=== PATIENT | male | born 1965 | race Two or more races ===

== ENCOUNTER 2024-01-09 05:40 | Inpatient (IN) | payer MEDICAID, OTHER ==
[~2024-01-09] VITALS: Ht 167.6 cm; Wt 75.2 kg
[2024-01-09] VITALS (19 sets, daily range): BP systolic 94–127; BP diastolic 58–79; PULSE 66–83; RESP 10–22; TEMP 97.4–97.9; O2SAT 90–99
[2024-01-09 07:38] LABS: Alanine Aminotransferase 35 U/L (7-40); Albumin 4.5 g/dL (3.2-4.8); Alkaline Phosphatase 48 U/L (46-116); Anion Gap 5 (5-15); Aspartate Aminotransferase 136 U/L (13-40); BUN/Creatinine Ratio 14.2 (10.0-20.0); Blood Urea Nitrogen 18 mg/dL (9-23); Calcium 9.5 mg/dL (8.7-10.4); Carbon Dioxide 29 mmol/L (20-30); Chloride 105 mmol/L (98-107); Glucose 96 mg/dL (74-106); Lipase 32 U/L (12-53); Magnesium 2.2 mg/dL (1.6-2.6); Potassium 4.2 mmol/L (3.5-5.1); Sodium 139 mmol/L (136-145)
[2024-01-09 07:39] LABS: Bilirubin, Total 0.3 mg/dL (0.2-1.0); Total Protein 7.4 g/dL (5.7-8.2)
[2024-01-09 07:40] LABS: INR 1.03 (0.9-1.15); Partial Thromboplastin Time 27.1 SEC (24.5-34.5); Prothrombin Time 10.9 sec (9.3-11.8)
[2024-01-09 07:41] LABS: Basophils # (auto) 0 10 ^3/uL (0-0.2); Basophils % (auto) 0.5 % (0.0-2.0); Eosinophils # (auto) 0.1 10 ^3/uL (0-0.8); Eosinophils % (auto) 2.2 % (0.0-7.0); Hematocrit 39.3 % (41.0-53.0); Hemoglobin 13.5 g/dL (13.5-17.5); Lymphocytes # (auto) 1.4 10 ^3/uL (0.4-5.4); Lymphocytes % (auto) 27.4 % (10.0-50.0); Mean Corpuscular Hemoglobin 30.1 pg (28.0-32.0); Mean Corpuscular Hgb Conc. 34.4 g/dL (32.0-36.0); Mean Corpuscular Volume 87.7 fL (80.0-100.0); Monocytes # (auto) 0.3 10 ^3/uL (0-1.3); Monocytes % (auto) 6.9 % (0.0-12.0); Neutrophils # (auto) 3.2 10 ^3/uL (1.6-8.6); Nucleated Red Blood Cells % 0.1 %; Platelet Count (auto) 172 10^3/uL (140-450); Red Blood Cells 4.49 10^6/uL (4.5-5.90); Red Cell Distribution Width 14.4 % (11.8-14.3)
[2024-01-09] MEDS: ASPirin 81 mg TAB PO ONE (07:53)
[2024-01-09] MEDS: NITROGLYCERIN 2% OINT 1GM PKG TD ONE (07:55)
[2024-01-09] MEDS: ENOXAPARIN SOD 80 MG/0.8ML SYRINGE SC ONE ×2 (08:08→20:32)
[2024-01-09] MEDS: METOPROLOL TARTRATE 1MG/1ML-5ML VIAL IV ONE (08:51)
[2024-01-09] MEDS ORDERED: ONDANSETRON HCL 4 MG/2 ML VIAL IV PRN (10:45)
[2024-01-09] MEDS ORDERED: NITROGLYCERIN 0.4 MG SL TAB SL PRN (10:45)
[2024-01-09] MEDS ORDERED: hydrALAZINE HCL 20 MG/ML VL IV PRN (10:45)
[2024-01-09] MEDS ORDERED: HYDROcodone-ACET 5/325MG TAB PO PRN (10:45)
[2024-01-09] MEDS ORDERED: MORPHINE SULFATE INJ 2 MG/ml SYRG IV PRN ×2 (10:45)
[2024-01-09 10:56] LABS: LDL Cholesterol 150 mg/dL (< 100); Triglycerides 100 mg/dL (< 150)
[2024-01-09 10:57] LABS: HDL Cholesterol 39 mg/dL (40-59)
[2024-01-09 10:58] LABS: Cholesterol 204 mg/dL (< 200)
[2024-01-09] MEDS ORDERED: LEVO50TA7 PO (13:37)
[2024-01-09] MEDS ORDERED: FEXO-226 PO (13:37)
[2024-01-09] MEDS ORDERED: MONT-8 PO (13:37)
[2024-01-09] MEDS ORDERED: BALS750C6 PO (13:37)
[2024-01-09] MEDS ORDERED: TERB250T92 PO (13:37)
[2024-01-09] MEDS ORDERED: DICY-89 PO (13:37)
[2024-01-09] MEDS ORDERED: CHOL20007 PO (13:37)
[2024-01-09] MEDS ORDERED: ATEN50TA PO (13:37)
[2024-01-09] MEDS: ACETAMINOPHEN 325 MG TAB PO PRN (15:31)
[2024-01-09] MEDS ORDERED: HEPARIN DRIP/D5W 100UNITS/ML 250 ML IV SCH (18:00)
[2024-01-09] MEDS: SODIUM CHLORIDE 0.9% 500 ML IV ONE (18:28)
[2024-01-09] MEDS: ATORVASTATIN 20 MG TAB PO SCH (21:43)
[2024-01-10] VITALS (24 sets, daily range): BP systolic 97–148; BP diastolic 66–95; PULSE 73–98; RESP 9–26; TEMP 97.9–98.8; O2SAT 90–96
[2024-01-10 01:35] LABS: Amphetamine Screen, Urine Neg (NEGATIVE); Benzodiazephine Screen, Urine Neg (NEGATIVE)
[2024-01-10 01:36] LABS: Barbiturate Scree,Urine Neg (NEGATIVE); Cannabinoid Screen, Urine Neg (NEGATIVE); Cocaine Screen, Urine Neg (NEGATIVE); Opiate Scree,Urine Neg (NEGATIVE); Phencyclidine Screen, Urine Neg (NEGATIVE)
[2024-01-10 07:18] LABS: Alanine Aminotransferase 44 U/L (7-40); Alkaline Phosphatase 46 U/L (46-116); Anion Gap 8 (5-15); Calcium 9.1 mg/dL (8.7-10.4); Carbon Dioxide 25 mmol/L (20-30); Chloride 105 mmol/L (98-107); Sodium 138 mmol/L (136-145)
[2024-01-10 07:19] LABS: Glucose 91 mg/dL (74-106)
[2024-01-10 07:20] LABS: BUN/Creatinine Ratio 11.5 (10.0-20.0); Blood Urea Nitrogen 14 mg/dL (9-23)
[2024-01-10 07:21] LABS: Albumin 4.1 g/dL (3.2-4.8); Aspartate Aminotransferase 152 U/L (13-40)
[2024-01-10 07:22] LABS: Bilirubin, Total 0.6 mg/dL (0.2-1.0); Total Protein 6.7 g/dL (5.7-8.2)
[2024-01-10 07:25] LABS: Basophils # (auto) 0.1 10 ^3/uL (0-0.2); Basophils % (auto) 0.8 % (0.0-2.0); Eosinophils # (auto) 0.2 10 ^3/uL (0-0.8); Eosinophils % (auto) 3.3 % (0.0-7.0); Hematocrit 37.9 % (41.0-53.0); Hemoglobin 13.2 g/dL (13.5-17.5); Lymphocytes % (auto) 29.7 % (10.0-50.0); Mean Corpuscular Hemoglobin 30.4 pg (28.0-32.0); Mean Corpuscular Hgb Conc. 34.9 g/dL (32.0-36.0); Monocytes # (auto) 0.7 10 ^3/uL (0-1.3); Monocytes % (auto) 10.6 % (0.0-12.0); Neutrophils # (auto) 3.8 10 ^3/uL (1.6-8.6); Neutrophils % (auto) 55.6 % (37.0-80.0); Nucleated Red Blood Cells % 0.1 %; Platelet Count (auto) 149 10^3/uL (140-450); Red Blood Cells 4.35 10^6/uL (4.5-5.90); Red Cell Distribution Width 14.1 % (11.8-14.3); White Blood Cell 6.7 10^3/uL (4.4-10.8)
[2024-01-10] MEDS: ASPirin 81 mg TAB PO SCH (07:56)
[2024-01-10] MEDS: LIDOCAINE 2%HCL (LOCAL ANESTH.) INJ 20ML MDV ONE (08:42)
[2024-01-10] MEDS: VERAPAMIL 2.5MG/ML INJ 2ML VIAL IV ONE (08:44)
[2024-01-10] MEDS: HEPARIN SODIUM (PORCINE) 5000 UNITS/ML 1ML VIAL ONE (08:44)
[2024-01-10] MEDS: fentaNYL CITRATE 100 MCG/2 ML VL ONE (08:48)
[2024-01-10] MEDS: MIDAZOLAM HCL 2MG/2ML 2ml VIAL (1mg/ml) ONE (08:48)
[2024-01-10] MEDS: IODIXANOL 320MG/ML 100ML BTL IV ONE (09:33)
[2024-01-10] MEDS: ANGIOMAX 250 MG VIAL IV ONE (09:33)
[2024-01-10] MEDS: SODIUM CHL 0.9% 50 ML ONE (09:33)
[2024-01-10] MEDS: CLOPIDOGREL BISULFATE 75 MG TAB ONE (09:56)
[2024-01-10] MEDS: ASPirin 81 mg TAB ONE (09:57)
[2024-01-10] MEDS: PANTOPRAZOLE 40 MG TAB PO ONE (10:45)
[2024-01-10 16:40] LABS: Urine Bacteria None Seen /hpf (None Seen)
[2024-01-10 16:54] LABS: Urine Blood Negative /uL (Negative); Urine Clarity Clear (Clear); Urine Color Colorless (Yellow); Urine Protein, UAD Negative (Negative); Urine Specific Gravity 1.018 (1.001-1.035); Urine Urobilinogen Normal (Negative); Urine WBC <1 /hpf (0 - 3)
[2024-01-10] MEDS: MONTELUKAST SODIUM 10 MG TAB PO SCH (21:10)
[2024-01-10] MEDS: SACUBITRIL-VALSARTAN 24mg/26mg TAB PO SCH (21:11)
[2024-01-11] VITALS (20 sets, daily range): BP systolic 102–134; BP diastolic 71–89; PULSE 81–106; RESP 11–26; TEMP 97.6–98.6; O2SAT 90–96
[2024-01-11 06:16] LABS: Hematocrit 41.7 % (41.0-53.0); Hemoglobin 14.4 g/dL (13.5-17.5); Mean Corpuscular Hemoglobin 30.2 pg (28.0-32.0); Mean Corpuscular Hgb Conc. 34.5 g/dL (32.0-36.0); Mean Corpuscular Volume 87.5 fL (80.0-100.0); Platelet Count (auto) 197 10^3/uL (140-450); Red Blood Cells 4.76 10^6/uL (4.5-5.90); Red Cell Distribution Width 14.4 % (11.8-14.3); White Blood Cell 9.8 10^3/uL (4.4-10.8)
[2024-01-11 06:28] LABS: Band Neutrophils % (manual) 0; Basophils % (manual) 0 (0.0-2.0); Blast Cells 0; Metamyelocytes % 0; Myelocytes % 0; Promyelocytes % 0; Reactive Lymphocytes 0
[2024-01-11] MEDS: LEVOTHYROXINE SODIUM 25 MCG TAB PO SCH (06:35)
[2024-01-11] MEDS: PANTOPRAZOLE 40 MG TAB PO SCH (06:36)
[2024-01-11 07:27] LABS: Alanine Aminotransferase 34 U/L (7-40); Albumin 4.4 g/dL (3.2-4.8); Alkaline Phosphatase 49 U/L (46-116); Anion Gap 9 (5-15); Aspartate Aminotransferase 81 U/L (13-40); BUN/Creatinine Ratio 11.2 (10.0-20.0); Bilirubin, Total 0.7 mg/dL (0.2-1.0); Blood Urea Nitrogen 12 mg/dL (9-23); Calcium 9.5 mg/dL (8.7-10.4); Carbon Dioxide 24 mmol/L (20-30); Chloride 103 mmol/L (98-107); Glucose 87 mg/dL (74-106); Magnesium 1.9 mg/dL (1.6-2.6); Potassium 3.9 mmol/L (3.5-5.1); Sodium 136 mmol/L (136-145); Total Protein 7.2 g/dL (5.7-8.2)
[2024-01-11 07:52] LABS: Eosinophils % (manual) 3 (0-7); Lymphocytes % (manual) 42 (10.0-50.0); Monocytes % (manual) 4 (0-12); Platelet Estimate Adequate
[2024-01-11] MEDS: DOCUSATE SOD 100 MG CAP PO PRN (09:22)
[2024-01-11] MEDS: EMPAGLIFLOZIN 10 MG TAB PO SCH (09:22)
[2024-01-11] MEDS: CLOPIDOGREL BISULFATE 75 MG TAB PO SCH (09:22)
[2024-01-11] MEDS: METOPROLOL SUCCINATE XL 50 MG TAB PO SCH (09:23)
[2024-01-11] MEDS ORDERED: SACU1TAB PO (11:11)
[2024-01-11] MEDS ORDERED: METO-6 PO (11:11)
[2024-01-11] MEDS ORDERED: ATOR20TA50 PO (11:11)
[2024-01-11] MEDS ORDERED: ASPI-325 PO (11:11)
[2024-01-11] MEDS ORDERED: CLOP75TA70 PO (11:11)
[2024-01-11] MEDS ORDERED: EMPA1TAB PO (14:18)
[2024-01-11] MEDS ORDERED: EZET10TA22 PO (14:18)
[2024-01-11] MEDS ORDERED: LOSA-534 PO (17:13)
== END 2024-01-11 19:40 | disposition home or self-care (01) | DRG 174 ==
LOC: ER 05:40 → EDBD 05:40 → TELE 10:51 → DOU IN ICU 12:27
PROVIDERS: ADMIT Registered Nurse; ATTEND Internal Medicine
PROC: 027034Z Dilation of Coronary Artery, One Artery with Drug-eluting Intraluminal Device, Percutaneous Approach (ICD-10-PCS; principal; 2024-01-10)
PROC: 4A023N7 Measurement of Cardiac Sampling and Pressure, Left Heart, Percutaneous Approach (ICD-10-PCS; 2024-01-10)
PROC: B211YZZ Fluoroscopy of Multiple Coronary Arteries using Other Contrast (ICD-10-PCS; 2024-01-10)
DX: I21.4 Non-ST elevation (NSTEMI) myocardial infarction (principal); E03.9 Hypothyroidism, unspecified; E66.9 Obesity, unspecified; E78.5 Hyperlipidemia, unspecified; I25.10 Atherosclerotic heart disease of native coronary artery without angina pectoris; I10 Essential (primary) hypertension; K58.9 Irritable bowel syndrome, unspecified; R74.01 Elevation of levels of liver transaminase levels; J45.909 Unspecified asthma, uncomplicated; Z87.11 Personal history of peptic ulcer disease; Z90.49 Acquired absence of other specified parts of digestive tract; Z68.26 Body mass index [BMI] 26.0-26.9, adult; Z79.82 Long term (current) use of aspirin; Z79.02 Long term (current) use of antithrombotics/antiplatelets; Z79.899 Other long term (current) drug therapy
CPT/HCPCS: 36415; 71045; 74176; 80053; 80061; 80307; 81001; 82962; 83036; 83690; 83735; 83880; 84443; 84484; 85007; 85025; 85027; 85610; 85730; 87081; 92941; 93005; 93306; 93458; 96372; 96374; 99152; C1894; G0378; J2250; Q9967